=== PATIENT | male | born 1995 | race Caucasian/White ===

== ENCOUNTER 2017-09-04 13:32 | Emergency (ER) | payer OTHER ==
[~2017-09-04] VITALS: Ht 175.3 cm; Wt 110.8 kg
[2017-09-04] MEDS ORDERED: ZOFRAN ODT4 MG PO (15:18)
[2017-09-04 15:38] VITALS: BP 124/71
== END 2017-09-04 15:38 | disposition home or self-care (01) ==
LOC: EME 13:32
DX: S09.90XA Unspecified injury of head, initial encounter (principal); W03.XXXA Other fall on same level due to collision with another person, initial encounter; Y93.61 Activity, american tackle football
CPT/HCPCS: 99281; 99283